=== PATIENT | male | born 1970 | race African-American/Black ===

== ENCOUNTER 2025-02-20 14:55 | Emergency (ER) | payer MEDICAID, OTHER ==
[~2025-02-20] VITALS: Ht 182.9 cm; Wt 91.0 kg
[~2025-02-20 14:55] MED LIST: AMIT10TA14 MT; ASPI-1497 PO
[2025-02-20 15:03] VITALS: O2SAT 98
[2025-02-20] MEDS ORDERED: KETOROLAC 30MG/ML VIAL IM ONE (17:45)
[2025-02-20] MEDS: KETOROLAC 30MG/ML VIAL IM NR (17:45)
[2025-02-20] MEDS ORDERED: LIDOCAINE 5% PATCH TOP SCH (17:45)
[2025-02-20] MEDS ORDERED: CYCLOBENZAPRINE 10MG TABLET PO ONE (17:45)
[2025-02-20] MEDS ORDERED: IBUP-2028 MT (18:58)
[2025-02-20] MEDS: CYCLOBENZAPRINE 10MG TABLET PO NR (19:17)
[2025-02-20] MEDS: LIDOCAINE 5% PATCH TOP NR (19:18)
[2025-02-20] MEDS ORDERED: LIDO700A30 TP (19:21)
[2025-02-20 19:25] VITALS: BP 142/79; PULSE 88; RESP 18; TEMP 36.7; O2SAT 98
== END 2025-02-20 19:26 | disposition home or self-care (01) ==
LOC: ER 14:55
DX: S39.012A Strain of muscle, fascia and tendon of lower back, initial encounter (principal); M48.061 Spinal stenosis, lumbar region without neurogenic claudication; Z79.899 Other long term (current) drug therapy; V43.52XA Car driver injured in collision with other type car in traffic accident, initial encounter; Y93.89 Activity, other specified; Y92.89 Other specified places as the place of occurrence of the external cause; Y99.8 Other external cause status
CPT/HCPCS: 99283; 72100; J1885